=== PATIENT | male | born 1975 | race Caucasian/White ===

== ENCOUNTER 2017-11-23 04:38 | Emergency (ER) | payer OTHER ==
[~2017-11-23] VITALS: Ht 162.6 cm; Wt 78.9 kg
[2017-11-23] MEDS ORDERED: ACETAMINOPHEN 500 MG TABLET ONE (04:53)
[2017-11-23] MEDS ORDERED: IBUPROFEN 800 MG TABLET ONE (04:53)
[2017-11-23] MEDS ORDERED: ACETAMINOPHEN 500 MG TABLET PO ONE (05:00)
[2017-11-23] MEDS ORDERED: IBUPROFEN 200 MG TABLET PO ONE (05:00)
[2017-11-23] MEDS ORDERED: IBUPROFEN 800 MG TABLET PO ONE (05:00)
[2017-11-23 05:40] LABS: RAPID INFLUENZA A Negative (Negative); RAPID INFLUENZA B Negative (Negative)
[2017-11-23 06:54] VITALS: BP 120/73
[2017-11-23] MEDS ORDERED: DEXAMETHASONE 4 MG TABLET PO ONE (07:00)
[2017-11-23] MEDS ORDERED: DEXAMETHASONE 4 MG TABLET ONE (07:02)
== END 2017-11-23 07:08 | disposition home or self-care (01) ==
LOC: ED 07:02
DX: B34.9 Viral infection, unspecified (principal)
CPT/HCPCS: 71046; 87400; 99285

== ENCOUNTER 2018-01-30 18:53 | Emergency (ER) | payer OTHER ==
[~2018-01-30] VITALS: Ht 162.6 cm; Wt 80.7 kg
[2018-01-30 19:25] VITALS: BP 134/79
[2018-01-30] MEDS ORDERED: FLUORESCEIN OPHTHALMIC 1 MG STRIP ONE (19:53)
[2018-01-30] MEDS ORDERED: PROPARACAINE OPHTH 0.5%, 15ML ONE (19:53)
[2018-01-30] MEDS ORDERED: PROPARACAINE OPHTH 0.5%, 15ML EACHEYE ONE (20:00)
[2018-01-30] MEDS ORDERED: FLUORESCEIN OPHTHALMIC 1 MG STRIP EACHEYE ONE (20:00)
[2018-01-30] MEDS ORDERED: HYDROcodone/APAP 5/325 TABLET PO ONE (20:30)
[2018-01-30] MEDS ORDERED: ERYTHROMYCIN OPHTH 0.5%, 1GM RIGHTEYE ONE (20:30)
[2018-01-30] MEDS ORDERED: HYDROcodone/APAP 5/325 TABLET ONE (20:35)
== END 2018-01-30 21:24 | disposition home or self-care (01) ==
LOC: ED 21:00
DX: S05.01XA Injury of conjunctiva and corneal abrasion without foreign body, right eye, initial encounter (principal); Y93.89 Activity, other specified; Y92.098 Other place in other non-institutional residence as the place of occurrence of the external cause; Y99.8 Other external cause status; X58.XXXA Exposure to other specified factors, initial encounter
CPT/HCPCS: 99283